=== PATIENT | female | born 1980 | race African-American/Black ===

== ENCOUNTER 2020-11-06 13:21 | Emergency (ER) | payer SELFPAY ==
[~2020-11-06] VITALS: Ht 170.2 cm; Wt 61.0 kg
[2020-11-06] MEDS ORDERED: SODIUM CHLORIDE 0.9% 1,000 ML IV ONE (14:00)
[2020-11-06 14:21] LABS: BASOPHILS % 0.8 % (0.0-2.0); HEMATOCRIT. 39.6 % (36.0-48.0); HEMOGLOBIN. 12.8 g/dL (12.0-16.0); LYMPHOCYTES % 12.3 % (20.0-50.0); MEAN CORPUSCULAR HEMOGLOBIN 30.2 pg (28.0-32.0); MEAN CORPUSCULAR VOLUME 93.3 fL (81.0-99.0); MEAN PLATELET VOLUME 7.4 fl (7.4-10.4); MONOCYTES % 5.2 % (2.0-8.0); NEUTROPHILS % 81.7 % (40.0-76.0); PLATELET 299 x1000/uL (130-400); RED BLOOD CELL COUNT 4.24 mill/uL (4.2-5.4); RED CELL DISTRIBUTION WIDTH 14.6 % (11.6-14.6)
[2020-11-06 15:00] LABS: CHLORIDE 107 mEq/L (98-107)
[2020-11-06 15:04] LABS: ETHANOL BLOOD < 10 mg/dL
[2020-11-06 20:00] VITALS: BP 112/68
== END 2020-11-06 20:08 | disposition home or self-care (01) ==
LOC: ER 13:21 → EDBD 13:21 → ER 20:08
DX: R56.9 Unspecified convulsions (principal)
CPT/HCPCS: 36415; 70450; 71045; 80053; 80307; 80320; 80329; 82140; 84443; 85025; 93005; 99285; J7030; Z7610; G0480